=== PATIENT | female | born 1980 | race Caucasian/White ===

== ENCOUNTER 2023-06-01 17:35 | Emergency (ER) | payer BC ==
[~2023-06-01] VITALS: Ht 162.5 cm; Wt 85.3 kg
== END 2023-06-01 18:47 | disposition home or self-care (01) ==
LOC: ED 17:35
DX: S61.202A Unspecified open wound of right middle finger without damage to nail, initial encounter (principal); Z88.2 Allergy status to sulfonamides; W26.8XXA Contact with other sharp object(s), not elsewhere classified, initial encounter; Y93.89 Activity, other specified; Y92.89 Other specified places as the place of occurrence of the external cause; Y99.8 Other external cause status